=== PATIENT | female | born 1960 ===

== ENCOUNTER 2018-02-19 00:45 | Observation (INO) | payer BC ==
[2018-02-19] MEDS ORDERED: ALBUTEROL HFA 8 GM INHALER INH (04:00)
[2018-02-19] MEDS ORDERED: ONDANSETRON 4 MG INJ IV (04:00)
[2018-02-19] MEDS ORDERED: ACETAMINOPHEN 325 MG TAB PO (04:00)
[2018-02-19] MEDS: PANTOPRAZOLE (EC) 40 MG TAB PO (05:48)
[2018-02-19 06:43] LABS: ADD MAN DIFF? NO
[2018-02-19 06:51] LABS: WHITE BLOOD COUNT 7.4 10^3/ul (4.8-10.8)
[2018-02-19 06:51] LABS: BASOPHILS % 0.3 % (0.0-2.0); EOSINOPHILS # 0.1 10^3/ul (0.0-0.5); EOSINOPHILS % 1.5 % (0.0-7.0); HEMATOCRIT 36.9 % (37.0-47.0); HEMOGLOBIN 11.8 g/dl (12.0-16.0); LYMPHOCYTES # 2.4 10^3/ul (0.8-2.9); MEAN CORPUSCULAR HEMOGLOBIN 26.1 pg (29.0-33.0); MEAN CORPUSCULAR VOLUME 81.6 fl (82.0-101.0); MONOCYTE # 0.5 10^3/ul (0.3-0.9); MONOCYTES % 7.2 % (0.0-11.0); NEUTROPHIL # 4.3 10^3/ul (1.6-7.5); NEUTROPHILS % 57.7 % (39.0-77.0); PLATELET COUNT 228 10^3/UL (140-415); RED BLOOD COUNT 4.52 10^6/ul (4.20-5.40); RED CELL DISTRIBUTION WIDTH 14.1 % (11.5-14.5)
[2018-02-19 07:16] LABS: ANION GAP 10 (8-16); BLOOD UREA NITROGEN 14 mg/dl (7-20); CALCIUM 9.6 mg/dl (8.4-10.2); CARBON DIOXIDE 34 mmol/L (21-31); CHLORIDE 103 mmol/L (97-110); CREATININE 0.73 mg/dl (0.44-1.00); GLUCOSE 100 mg/dl (70-220); POTASSIUM 4.6 mmol/L (3.5-5.1); SODIUM 142 mmol/L (135-144)
[2018-02-19 07:28] LABS: CHOL/HDL RATIO 5.5 RATIO; HDL CHOLESTEROL 33 mg/dl (37-92); LDL CHOLESTEROL,CALCULATED 111 mg/dl; TRIGLYCERIDES 201 mg/dl (0-149)
[2018-02-19 07:28] LABS: CHOLESTEROL 184 mg/dl (100-200)
[2018-02-19] MEDS: MELOXICAM 15 MG TAB PO (10:01)
[2018-02-19] MEDS: HYDROCHLOROTHIAZIDE 12.5 MG CAP PO (10:02)
[2018-02-19] MEDS: CYANOCOBALAMIN 500 MCG TAB PO (10:02)
[2018-02-19] MEDS: ASPIRIN 81 MG TAB PO (10:02)
[2018-02-19] MEDS: GABAPENTIN 100 MG CAP PO (20:56)
[2018-02-19] MEDS: CLOPIDOGREL 75 MG TAB PO (20:56)
[2018-02-19] MEDS: ATORVASTATIN 10 MG TAB PO (20:56)
[2018-02-20] MEDS: PANTOPRAZOLE (EC) 40 MG TAB PO (06:12)
[2018-02-20 06:40] LABS: ADD MAN DIFF? NO
[2018-02-20 06:45] LABS: BASOPHILS % 0.4 % (0.0-2.0); EOSINOPHILS # 0.1 10^3/ul (0.0-0.5); EOSINOPHILS % 1.8 % (0.0-7.0); HEMATOCRIT 38.7 % (37.0-47.0); HEMOGLOBIN 12.3 g/dl (12.0-16.0); LYMPHOCYTES # 1.9 10^3/ul (0.8-2.9); MEAN CORPUSCULAR HEMOGLOBIN 25.8 pg (29.0-33.0); MEAN CORPUSCULAR HGB CONC 31.8 g/dl (32.0-37.0); MEAN CORPUSCULAR VOLUME 81.3 fl (82.0-101.0); MEAN PLATELET VOLUME 10.1 fl (7.4-10.4); MONOCYTE # 0.5 10^3/ul (0.3-0.9); MONOCYTES % 6.6 % (0.0-11.0); NEUTROPHIL # 4.8 10^3/ul (1.6-7.5); NEUTROPHILS % 64.9 % (39.0-77.0); PLATELET COUNT 239 10^3/UL (140-415); RED BLOOD COUNT 4.76 10^6/ul (4.20-5.40); RED CELL DISTRIBUTION WIDTH 13.9 % (11.5-14.5)
[2018-02-20 06:45] LABS: WHITE BLOOD COUNT 7.3 10^3/ul (4.8-10.8)
[2018-02-20 06:53] LABS: HEMOGLOBIN A1C 5.7 % (0-5.9)
[2018-02-20 07:16] LABS: ANION GAP 10 (8-16); BLOOD UREA NITROGEN 15 mg/dl (7-20); CALCIUM 9.9 mg/dl (8.4-10.2); CARBON DIOXIDE 33 mmol/L (21-31); CHLORIDE 102 mmol/L (97-110); CREATININE 0.69 mg/dl (0.44-1.00); GLUCOSE 100 mg/dl (70-220); POTASSIUM 4.4 mmol/L (3.5-5.1); SODIUM 141 mmol/L (135-144)
[2018-02-20] MEDS: MELOXICAM 15 MG TAB PO (08:29)
[2018-02-20] MEDS: CLOPIDOGREL 75 MG TAB PO (08:29)
[2018-02-20] MEDS: CYANOCOBALAMIN 500 MCG TAB PO (08:29)
[2018-02-20] MEDS: HYDROCHLOROTHIAZIDE 12.5 MG CAP PO ×2 (08:30→11:19)
[2018-02-20] MEDS ORDERED: ASPIRIN 81 MG TAB PO (09:00)
== END 2018-02-20 18:00 | disposition home or self-care (01) ==
LOC: TEL 00:45
PROVIDERS: Internal Medicine
DX: I63.9 Cerebral infarction, unspecified (principal); I10 Essential (primary) hypertension; E66.01 Morbid (severe) obesity due to excess calories; Z68.42 Body mass index [BMI] 45.0-49.9, adult; E78.00 Pure hypercholesterolemia, unspecified; R00.1 Bradycardia, unspecified; R20.2 Paresthesia of skin; R20.0 Anesthesia of skin; E78.5 Hyperlipidemia, unspecified; J45.909 Unspecified asthma, uncomplicated; Z87.891 Personal history of nicotine dependence; Z23 Encounter for immunization
CPT/HCPCS: 70553; 80048; 80061; 83036; 85025; 87081; 90686; 92610; 93306; 93880; 97161; 97166; 99217; G0378